=== PATIENT | male | born 2000 | race Caucasian/White ===

== ENCOUNTER 2023-04-07 16:49 | Emergency (ER) | payer OTHER ==
[~2023-04-07] VITALS: Ht 198.1 cm; Wt 90.7 kg
[2023-04-07 17:15] VITALS: BP 113/61; TEMP 97.3; O2SAT 99
== END 2023-04-07 17:39 | disposition home or self-care (01) ==
LOC: ER 16:56
DX: S62.336D Displaced fracture of neck of fifth metacarpal bone, right hand, subsequent encounter for fracture with routine healing (principal); X58.XXXD Exposure to other specified factors, subsequent encounter
CPT/HCPCS: J7030